=== PATIENT | female | born 1950 | race Caucasian/White ===

== ENCOUNTER 2025-06-22 06:05 | Observation (INO) ==
--- NOTE | 2025-06-08 16:24 | PAT Medication Instructions ---
Medication Instructions Date of Service June 08, 2025 Home Medications Medication Instructions Recorded cranberry extract 650 mg capsule 1,300 mg (2 x 650 mg) PO DAILY #60 07/16/20 caps cranberry extract 650 mg capsule 1,300 mg (2 x 650 mg) PO DAILY calcium no.26 167 mg-magnesium no.15 83 mg-zinc 5 mg capsule (Mcyudyc-Splltvzij-Uefy Complex) 1 cap PO QAM coenzyme Q10 200 mg capsule (Co Q-10) 200 mg PO DAILY loratadine 10 mg tablet 10 mg PO DAILY PRN Allergy Symptoms multivitamin 1 tab PO QAM omega-3 fatty acids 900 mg PO DAILY rosuvastatin 10 mg tablet 5 mg PO QAM STOP taking 2 weeks before surgery (or as soon as possible if surgery is within 2 weeks) coenzyme Q10 200 mg capsule (Co Q-10) 200 mg PO DAILY omega-3 fatty acids 900 mg PO DAILY DO NOT take the morning of surgery calcium no.26 167 mg-magnesium no.15 83 mg-zinc 5 mg capsule (Otbqatx-Qnrrojgge-Qywn Complex) 1 cap PO QAM loratadine 10 mg tablet 10 mg PO DAILY PRN Allergy Symptoms multivitamin 1 tab PO QAM cranberry extract 650 mg capsule 1,300 mg (2 x 650 mg) PO DAILY Take morning of surgery With a small sip of water, OTHERWISE NOTHING TO EAT OR DRINK AFTER MIDNIGHT: rosuvastatin 10 mg tablet 5 mg PO QAM Other Notes If you have any questions please call us at [phone] or [phone] or [phone] or [phone]
--- NOTE | 2025-06-17 10:15 | Anesthesiology Consultation ---
Date of Service June 17, 2025 Assessment & Plan (1) Encounter for pre-operative examination: Chart Review Chart Review: Acceptable Risk for Surgery and Patient seen in Pre Admission Testing Teaching & Discussion Pre-Anesthesia Teaching/Discussion Notes: Instructed NPO after midnight before surgery, except medications with 15 cc of water. Medication instructions provided according to the PAT guidelines. History Surgery Operation Date: 06/22/25 07:30 Proposed Procedures p L1-L2, L3-L4, L4-L5 Decompression - Ken Mena MD Height/Weight Height: 5 ft 5 in Weight: 64.8 kg Allergies Allergy/AdvReac Type Severity Reaction Status Date / Time amoxicillin Allergy Intermediate rash Verified 06/22/25 06:11 erythromycin base Allergy Intermediate rash Verified 06/22/25 06:11 steroid Allergy Mild Rash Uncoded 06/22/25 06:11 Medications Home Medications Medication Instructions Recorded Confirmed Last Taken cranberry extract 650 mg capsule 1,300 mg (2 x 650 mg) PO DAILY #60 07/16/20 06/22/25 06/21/25 09:00 caps calcium no.26 167 mg-magnesium 1 cap PO QAM 06/04/25 06/22/25 06/21/25 09:00 no.15 83 mg-zinc 5 mg capsule (Wxutsff-Keaympmjw-Ikui Complex) coenzyme Q10 200 mg capsule (Co 200 mg PO DAILY 06/04/25 06/22/25 06/08/25 Q-10) loratadine 10 mg tablet 10 mg PO DAILY PRN Allergy Symptoms 06/04/25 06/22/25 Unknown multivitamin 1 tab PO QAM 06/04/25 06/22/25 06/21/25 09:00 omega-3 fatty acids 900 mg PO DAILY 06/04/25 06/22/25 06/08/25 rosuvastatin 10 mg tablet 5 mg PO QPM 06/04/25 06/22/25 06/21/25 22:00 Active Medications Generic Name Dose Route Start Last Admin Trade Name Freq PRN Reason Stop Dose Admin Acetaminophen 1,000 mg 06/22/25 06:00 06/22/25 06:35 Acetaminophen 500 Mg Tab PO 06/22/25 18:00 1,000 mg PREOP SE Administration Lactated Ringer's 1,000 mls @ 15 mls/hr 06/22/25 06:00 06/22/25 06:35 Lr IV 06/23/25 05:59 15 mls/hr .Q24H SE Administration Lactated Ringer's 1,000 mls @ 60 mls/hr 06/22/25 06:00 06/22/25 06:35 Lr IV 06/22/25 22:39 Not Given .[id number] SE Past Medical History Medical History Dyslipidemia Hepatitis entered into EMR 04/01/20 by PCP without additional details-not present in 2019 records-pt denies History of COVID-19 (03/2024) resolved Hx of cyst of breast right breast, noted on mammogram, resolved on own Lumbar spinal stenosis Osteopenia Prediabetes diet controlled Thyroid nodule needle bx, benign Patient denies h/o stroke, seizures, heart attack, heart failure, HTN, blood clots/DVTs or blood transfusions. Exercise / Class Metabolic Activity II 4-5 Yardwork/Stairs/Walk up hill (denies chest discomfort or shortness of breath with one flight of stairs) Past Family History Family History Mother Coronary heart disease Alzheimer disease Hearing loss Heart disease Father Myocardial infarction Heart disease Grandmother (Maternal) Ovarian cancer Son Cancer Testicular cancer Other No family history of allergies No family history of bleeding disorder Denies family history of Prostate cancer Breast cancer Colorectal cancer Stroke Asthma Past Surgical History Surgical History H/O hemorrhoidectomy H/O lumpectomy left breast H/O: hysterectomy Hx of bilateral cataract extraction Hx of colonoscopy S/P epidural steroid injection 05/26/25 lumbar states developed a rash around injection site that lasted x 1 day-resolved with benadryl Past Anesthesia History No Hx of Anesthesia Complications and No Family Hx of Anesthesia Complications History of PONV No Hx of PONV and No Hx of Motion Sickness Social History Smoking Status: Never smoker Do You Dip or Chew Tobacco: No Hx Alcohol Use: Yes Alcohol type: beer, wine and hard liquor alcohol intake frequency: a few times a month Hx Substance Use: No substance use type: does not use (qualified for medical marijuana-plans to start use after surgery/discussion with surgeon) Review of Systems Patient denies chest pain, shortness of breath, dyspnea on exertion, snoring, witnessed apneas, reflux, fever, chills, cough, wheezing, or palpitations. Physical Exam Vital Signs Last Vital Signs Temp 36.8 C 06/22/25 06:19 Pulse 58 L 06/22/25 06:19 Resp 18 06/22/25 06:19 BP 139/81 06/22/25 06:19 Pulse Ox 98 06/22/25 06:19 O2 Del Method Room Air 06/22/25 06:19 Vitals BP 118/76 P 61 TEMP 98.6 SP02 96% on RA RESP 18 Physical Patient resting comfortably in chair in no acute distress, alert and oriented, responding appropriately throughout visit Full cervical extension range of motion without pain TMD 3.5 finger breadths Mallampati Score 2 Dentition: several crowns, denies chipped or loose teeth, caps, implants or bridges Lungs: normal respiratory effort. Good air movement, clear throughout to auscultation, no adventitious breath sounds Cardiac: regular rate and rhythm, no murmurs noted Carotid arteries: negative bruit bilat Lab Results Anesthesia Preop Results Results Anesthesia Widget: WBC 5.31 K/ul (4.8-10.8) 06/17/25 Hgb 12.8 g/dl (12.0-16.0) 06/17/25 Hct 38.4 % (37.0-47.0) 06/17/25 Plt 145 K/uL (130-400) 06/17/25 Na 138 mmol/L (136-145) 06/17/25 K 4.4 mmol/L (3.5-5.1) 06/17/25 Cl 107 mmol/L (98-107) 06/17/25 CO2 26 mmol/L (21-32) 06/17/25 BUN 15 mg/dl (6-23) 06/17/25 Creat 0.88 mg/dl (0.6-1.2) 06/17/25 Glucose Level 103 mg/dl (70-99(Fasting)) H 06/17/25 PT 10.3 Seconds (9.0-12.0) 06/17/25 PTT 25 Seconds (21-31) 06/17/25 INR 1.0 (0.9-1.1) 06/17/25 HA1c 6.0 % (4.5-5.6) H 06/17/25 Blood Type A Negative 06/17/25 Antibody Screen NEGATIVE 06/17/25 Testing Electrocardiogram Date: 06/17/25 Sinus bradycardia with PACs, rate 56 bpm Chest X-Ray Date: 06/17/25 Heart size and pulmonary vasculature are normal. Lungs are hyperexpanded. No consolidation or pleural effusion. IMPRESSION: No acute findings.
[2025-06-22] MEDS ORDERED: ACETAMINOPHEN 1000 MG/100 ML IV IV ONE (06:24)
[2025-06-22] MEDS ORDERED: ALBUMIN HUMAN 5% 12.5 GM/250 ML VIAL IV ONE (06:24)
[2025-06-22] MEDS ORDERED: MIDAZOLAM HCL 1 MG/ML 2ML VIAL ONE (06:30)
[2025-06-22] MEDS ORDERED: ONDANSETRON INJ 2 MG/ML 2 ML VIAL ONE (06:30)
[2025-06-22] MEDS ORDERED: LIDOCAINE 2% 2 ML VIAL/AMP(20MG/ML) INFIL ONE (06:30)
[2025-06-22] MEDS ORDERED: DexMEDEtomidine HCL IV 100 MCG/ML VIAL IV ONE (06:30)
[2025-06-22] MEDS ORDERED: KETAMINE HCL 10MG/ML SYR ONE (06:30)
[2025-06-22] MEDS ORDERED: GLYCOPYRROLATE 0.2 MG/ML VIAL ONE (06:30)
[2025-06-22] MEDS ORDERED: PROPOFOL IV EMULSION 10 MG/ML 20 ML VIAL IV ONE (06:30)
[2025-06-22] MEDS ORDERED: ROCURONIUM BROMIDE 10 MG/ML 5 ML VIAL IV ONE ×2 (06:30→08:30)
[2025-06-22] MEDS ORDERED: DEXAMETHASONE SOD INJ 4 MG/ML VIAL ONE (06:30)
[2025-06-22] MEDS ORDERED: REMIFENTANIL HCL 1 MG VIAL IV ONE (06:31)
[2025-06-22] MEDS ORDERED: HYDROmorphone INJ 2 MG/ML SYR/VIAL ONE (06:31)
[2025-06-22] MEDS: ACETAMINOPHEN 500 MG TAB PO SCH (06:35)
[2025-06-22] MEDS: LR 15ML/HR IV SCH (06:35)
[2025-06-22] MEDS: LR 60ML/HR IV SCH (06:35)
[2025-06-22] MEDS ORDERED: PROPOFOL IV EMULSION 10 MG/ML 100 ML VIAL IV ONE (06:37)
--- NOTE | 2025-06-22 07:16 | History & Physical Bridge Note ---
Date of Service June 22, 2025 History & Physical Bridge Note I have examined the patient, reviewed the History & Physical and in the interval since the performance of the History & Physical I have noted the following changes of clinical significance: no changes noted
[2025-06-22] MEDS ORDERED: ONDANSETRON INJ 2 MG/ML 2 ML VIAL IV PRN ×2 (07:19→12:18)
[2025-06-22] MEDS ORDERED: ATROPINE SULFATE 0.1 MG/ML 10ML SYR IV PRN (07:19)
[2025-06-22] MEDS ORDERED: SUGAMMADEX SODIUM 200 MG/2 ML VIAL IV ONE (08:01)
[2025-06-22] MEDS ORDERED: ePHEDrine sulfate 50 MG/5 ML SYR ONE (08:04)
[2025-06-22] MEDS ORDERED: PHENYLEPHRINE 100MCG/ML 5ML SYR ONE (08:32)
[2025-06-22] MEDS ORDERED: ceFAZolin 330 MG/ML 1 GM VIAL ONE (11:29)
[2025-06-22] MEDS: THROMBIN 5000 UNITS KIT ONE (11:40)
[2025-06-22] MEDS: BUPIVACAINE 0.5 % 5 MG/1 ML MPF 30ML VIAL ONE (11:40)
[2025-06-22] MEDS: GELATIN SPONGE 12-7MM ONE (11:41)
[2025-06-22] MEDS: VANCOMYCIN HCL 1000MG/20ML VIAL ONE (11:41)
[2025-06-22] MEDS: FLOSEAL HEMOSTATIC MATRIX 10ML TOP ONE (11:41)
[2025-06-22] MEDS ORDERED: KETOROLAC 30 MG/ML VIAL ONE (11:48)
--- NOTE | 2025-06-22 12:17 | Post Operative Brief Note ---
PG Immediate Post Op with CF Date of Surgery June 22, 2025 Pre & Post Diagnosis Operation Date: 06/22/25 07:30 Pre-Op Diagnosis: (1) Degenerative spondylolisthesis (2) Lumbar spinal stenosis (3) Low back pain radiating to both legs Post-Op Diagnosis: (1) Degenerative spondylolisthesis (2) Lumbar spinal stenosis (3) Low back pain radiating to both legs I identified the patient and participated in the time-out.: Yes Procedure Operation Date: 06/22/25 07:30 Actual Procedures p L1-L2, L3-L4, L4-L5 Decompression(Not Applicable) - Ken Mena MD Surgeon Ken Mena MD Neuroradiologist none Estimated Blood Loss 30 Findings Consistent with Post-Op Diagnosis Specimens Specimen Description: No specimen per surgeon Drains Rutherford Catheter (Inserted prior to procedure by Sara Burnette without difficulty. Clear yellow urine noted.)
[2025-06-22] MEDS ORDERED: ALUMINUM/MAGNESIUM SUSP 30 ML UDC PO PRN (12:18)
[2025-06-22] MEDS ORDERED: SOD PHOSPHATE/SOD BIPHOSPHATE ENEMA 132 ML BTL PR PRN (12:18)
[2025-06-22] MEDS ORDERED: ACETAMINOPHEN 1,000 MG/100 ML VIAL IV PRN (12:18)
[2025-06-22] MEDS ORDERED: DO NOT ADMINISTER PNEUMOCOCCAL VACCINE PRN (12:18)
[2025-06-22] MEDS ORDERED: HYDROmorphone INJ 1 MG/ML SYRINGE IV PRN (12:18)
[2025-06-22] MEDS ORDERED: LORazepam 0.5 MG TAB PO PRN (12:18)
[2025-06-22] MEDS ORDERED: METOCLOPRAMIDE HCL INJ 5 MG/ML 2 ML VIAL IV PRN (12:18)
[2025-06-22] MEDS ORDERED: HYDROmorphone INJ 0.5 MG/0.5 ML SYR IV PRN (12:18)
[2025-06-22] MEDS ORDERED: NALOXONE HCL 0.4 MG/1 ML VIAL/CARP IV PRN (12:18)
[2025-06-22] MEDS ORDERED: MAGNESIUM HYDROXIDE SUSP 30 ML UDC PO PRN (12:18)
[2025-06-22] MEDS ORDERED: PROMETHAZINE 12.5 MG/50.5 ML BAG IV PRN (12:18)
[2025-06-22] MEDS ORDERED: FAMOTIDINE 20 MG TAB PO PRN (12:18)
[2025-06-22] MEDS ORDERED: DO NOT ADMINISTER FLU VACCINE PRN (12:18)
[2025-06-22] MEDS ORDERED: ONDANSETRON 4 MG OD TAB PO PRN (12:18)
[2025-06-22] MEDS ORDERED: diphenhydrAMINE Capsule 25 MG CAP PO PRN (12:18)
[2025-06-22] MEDS ORDERED: LORazepam Inj 0.5 MG in SYRINGE 0.25 ML IV PRN (12:18)
--- NOTE | 2025-06-22 12:24 | Fluoroscopy Report ---
FL lumbar spine 2-3V CLINICAL HISTORY: L1-L2, L3-L4, L4-L5 DECOMPRESSION COMPARISON STUDY: None FLUOROSCOPY TIME: 33 seconds FLUOROSCOPY IMAGES: 4 EXPOSURE DOSE: 16 mGy FINDINGS: Fluoroscopy was provided for lumbar surgery. IMPRESSION: Intraoperative fluoroscopy. ACT 112: Negative or not required by law. Electronically signed by: Mayur Cole M.D. 06/22/2025 12:22 PM
--- NOTE | 2025-06-22 12:36 | Anesthesiology Progress Note ---
Date of Service June 22, 2025 Anesthesia Post Procedure Vital Signs Vital Signs: Temp Pulse Resp BP Pulse Ox O2 Del Method O2 Flow Rate 06/22/25 12:20 94 H 12 120/74 97 Oxymask 4 06/22/25 12:10 36.1 C L 90 13 112/61 97 Oxymask 6 06/22/25 06:19 36.8 C 58 L 18 139/81 98 Room Air Transfer of Care Handoff Completed per policy Notes Mental Status: alert / awake / arousable Patient Amnestic to Procedure: Yes Nausea / Vomiting: adequately controlled Pain: adequately controlled Airway Patency, RR, SpO2: stable & adequate BP & HR: stable & adequate Hydration State: stable & adequate Anesthetic Complications: no major complications apparent
[2025-06-22] MEDS: ACETAMINOPHEN 500 MG TAB PO PRN (13:39)
--- NOTE | 2025-06-22 14:29 | Consultation ---
Date of Consultation June 22, 2025 Assessment & Plan (1) Low back pain radiating to both legs: (2) Stenosis, spinal, lumbar: (3) Hyperglycemia: (4) Osteoporosis: (5) HLD (hyperlipidemia): Plan Ms. Blanton is a very pleasant 74F with PMH Cervical/lumbar spinal stenosis, chron ic pain, osteoporosis, HLD, pre DM, Elevated PTH, elevated LFTs who presents with intractable low back pain. She failed conservative management and presents today for L1-L5 decompression. #Lumbar spinal stenosis -S/p decompression 06/22 Plan -Management per surgery -Pain control -PT/OT -Bowel regimen -DVT proph per surgery -Encourage incentive spirometry #HLD -Continue statin #Osteoporosis -Noted #Pre DM -Noted. f/u with PCP I spent a total of 38 minutes coordinating, documenting, and providing care for this patient excluding time spent in the performance of separately billed services. This included personally reviewing all current laboratories and imaging studies, medical reconciliation, outpatient chart review and discussion with specialists History of Present Illness Reason for Consultation: Medical management Attending Physician: Ken Mena MD History of Present Illness Ms. Blanton is a very pleasant 74F with PMH Cervical/lumbar spinal stenosis, chronic pain, osteoporosis, HLD, pre DM, Elevated PTH, elevated LFTs who presents with intractable low back pain. She failed conservative management and presents today for L1-L5 decompression. She is seen in her room post op. Her family is present at bedside. She feels well other than low back pain. She denies any other complaints. Allergies Allergy/AdvReac Type Severity Reaction Status Date / Time amoxicillin Allergy Intermediate rash Verified 06/22/25 06:11 erythromycin base Allergy Intermediate rash Verified 06/22/25 06:11 steroid Allergy Mild Rash Uncoded 06/22/25 06:11 Home Medications Medication Instructions Recorded Confirmed Type cranberry extract 650 mg capsule 1,300 mg (2 x 650 mg) PO DAILY #60 07/16/20 06/22/25 Rx caps calcium no.26 167 mg-magnesium 1 cap PO QAM 06/04/25 06/22/25 History no.15 83 mg-zinc 5 mg capsule (Khltjsn-Njnvwqjlp-Iebg Complex) coenzyme Q10 200 mg capsule (Co 200 mg PO DAILY 06/04/25 06/22/25 History Q-10) loratadine 10 mg tablet 10 mg PO DAILY PRN Allergy Symptoms 06/04/25 06/22/25 History multivitamin 1 tab PO QAM 06/04/25 06/22/25 History omega-3 fatty acids 900 mg PO DAILY 06/04/25 06/22/25 History rosuvastatin 10 mg tablet 5 mg PO QPM 06/04/25 06/22/25 History Patient History Medical History Lumbar spinal stenosis History of COVID-19 (03/2024) resolved Hx of cyst of breast right breast, noted on mammogram, resolved on own Osteopenia Prediabetes diet controlled Dyslipidemia Hepatitis entered into EMR 04/01/20 by PCP without additional details-not present in 2019 records-pt denies Thyroid nodule needle bx, benign Surgical History S/P epidural steroid injection 05/26/25 lumbar states developed a rash around injection site that lasted x 1 day-resolved with benadryl Hx of colonoscopy Hx of bilateral cataract extraction H/O hemorrhoidectomy H/O: hysterectomy H/O lumpectomy left breast Family History Mother Coronary heart disease Alzheimer disease Hearing loss Heart disease Father Myocardial infarction Heart disease Grandmother (Maternal) Ovarian cancer Son Cancer Testicular cancer Other No family history of allergies No family history of bleeding disorder Denies family history of Prostate cancer Breast cancer Colorectal cancer Stroke Asthma Social History Smoking Status: Never smoker Second Hand Exposure: No; Do You Dip or Chew Tobacco: No; Tobacco Cessation Education Requested by Patient: No Hx Alcohol Use: Yes Alcohol type: beer, wine and hard liquor Alcohol Intake Frequency Comment: 1 per day Hx Substance Use: No Preferred Language: [place] Communication Ability: Effective Visual Impairment: Partially Limited Hearing Ability: Normal Joggle Press Operator Required: No Beliefs That Will Affect Care: None marital status: Current Living Situation: Spouse current occupational status: retired 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 How many Children do You have: 2 How many Children do You have Comment: 1 boy 1 girl Other Information That Helps Us Care for You: No Feels Safe at Home: Yes Safety Concerns: Feels Safe At This Time Childhood Exposure to Second-Hand Smoke: No Diet: regular during the past year weight has: remained stable Dental Care, Regularly: Yes Physical Activity Frequency: Daily Seatbelt Use: always Sunscreen Use: Yes Assistive Devices: None Review of Systems Review of Systems: 13 point ROS negative unless stated in H PI Physical Exam Physical Exam: Vitals and labs reviewed General: Well appearing, NAD HEENT: EOMI, PERRLA Neck: Supple Cardiac: RRR no rubs gallops or murmurs Lungs: CTA no rhonchi wheezing or rales Abd: S NT ND BS positive : No aguilar MSK: No obvious deformities No drain Ext: No Edema cyanosis Skin: Warm, Dry Neuro: AOx3 No focal deficits. Psych: Normal Mood Results & Data Vital Signs (Past 12 Hours) Vital Signs Temp Pulse Pulse Resp BP Pulse Ox O2 Del Method 06/22/25 14:00 36 C L 92 H 16 103/66 95 Room Air 06/22/25 13:31 36 C L 90 16 113/75 96 Room Air 06/22/25 13:00 36.4 C L 94 H 14 115/75 95 Room Air 06/22/25 12:50 36.4 C L 90 16 114/74 93 Room Air 06/22/25 12:40 92 H 14 115/70 93 Room Air 06/22/25 12:30 93 H 12 113/70 97 Oxymask 06/22/25 12:20 94 H 12 120/74 97 Oxymask 06/22/25 12:10 36.1 C L 90 13 112/61 97 Oxymask 06/22/25 06:19 36.8 C 58 L 18 139/81 98 Room Air O2 Flow Rate 06/22/25 14:00 06/22/25 13:31 06/22/25 13:00 06/22/25 12:50 06/22/25 12:40 06/22/25 12:30 2 06/22/25 12:20 4 06/22/25 12:10 6 06/22/25 06:19
[2025-06-22] MEDS: DOCUSATE SODIUM/SENNA 50/8.6MG TAB PO SCH (21:02)
[2025-06-22] MEDS: ROSUVASTATIN CALCIUM 5 MG TAB PO SCH (21:02)
[2025-06-23 03:30] VITALS: RESP 16; O2SAT 98
[2025-06-23] MEDS: POLYETHYLENE (MIRALAX) 17 GM PACK PO SCH (05:49)
[2025-06-23 07:21] VITALS: PULSE 66; TEMP 98.1
--- NOTE | 2025-06-23 07:55 | Orthopedic Progress Note ---
Date of Service June 23, 2025 Assessment & Plan (1) Status post lumbar spine operative procedure for decompression of spinal cord: * Continue Current Treatment * Disposition: home * Daily treatment: Physical Therapy/ Occupational Therapy per protocol * Weight bearing status: WBAT, no restrictions * Appreciate hospital medicine eval and recs regarding hypotension * Continue to monitor for ABLA * Pain control * Office/hospital f/u 2 weeks for progress check and staple/suture removal * Potential discharge today pending PT/OT clearance, will discuss after lunch Subjective Active Problems: S/p L1-2, L3-5 decompression POD 1 74 y/o female s/p L1-2, L3-5 decompression. Doing well overall, pain managed and improved function. Denies leg pain. Hypotension overnight, asymptomatic. Denies fever/chills, chest pain/SOB, nausea/vomiting. Otherwise no complaints. Patient seen and examined, notes an improvement in lower extremity symptoms versus preoperative symptoms, minimal low back pain. When cleared by hospitalist and physical therapy may discharge home. Review of Systems All systems reviewed & are unremarkable except as noted in HPI & below. Physical Exam * General: Alert and oriented, no acute distress * Constitutional: well-developed, well-nourished. * Respiratory: Normal respiratory effort, no distress * Gastrointestinal: No tenderness to palpation, no rigidity or guarding. * Skin: No rash or lesion. * Neurologic: Grossly normal * Musculoskeletal: Surgical dressing CDI. Lumbar spine region without obvious deformity or overlying skin changes. Minimal tenderness of surgical region, otherwise no tenderness b/l buttock or LE. Lumbar flexion/extension and rotation ROM with minimal pain. AROM b/l hip flexion, knee flexion/extension, ankle flexion/extension intact. Sensation intact plantar/dorsal foot. Brisk capillary refill. Results & Data Results & Data Laboratory Results . Diagnostic Findings . Lumbar Spine X-Ray 06/22/25 07:30 FL lumbar spine 2-3V CLINICAL HISTORY: L1-L2, L3-L4, L4-L5 DECOMPRESSION COMPARISON STUDY: None FLUOROSCOPY TIME: 33 seconds FLUOROSCOPY IMAGES: 4 EXPOSURE DOSE: 16 mGy FINDINGS: Fluoroscopy was provided for lumbar surgery. IMPRESSION: Intraoperative fluoroscopy. ACT 112: Negative or not required by law. Electronically signed by: Mayur Cole M.D. 06/22/2025 12:22 PM PG Care Time/CCT Total # of Minutes Spent Total Time Spent with Patient: Total time spent is greater than 50% in coordination of care (as documented) at patient's floor/unit and/or counseling patient: Coding Level of Care Code 43340 Post Operative Follow-Up Diagnoses Status post lumbar spine operative procedure for decompression of spinal cord Z98.890
[2025-06-23] MEDS: SODIUM CHLORIDE 0.9% 500 ML IV ONE (08:37)
[2025-06-23 08:44] VITALS: BP 111/67
--- NOTE | 2025-06-23 10:11 | Hospitalist Progress Note ---
Date of Service June 23, 2025 Assessment & Plan (1) Low back pain radiating to both legs: (2) Stenosis, spinal, lumbar: (3) Hyperglycemia: (4) Osteoporosis: (5) HLD (hyperlipidemia): Plan Ms. Blanton is a very pleasant 74F with PMH Cervical/lumbar spinal stenosis, chronic pain, osteoporosis, HLD, pre DM, Elevated PTH, elevated LFTs who presents with intractable low back pain. She failed conservative management and presents today for L1-L5 decompression. #Lumbar spinal stenosis -S/p decompression 06/22 Plan -Management per surgery -Pain control -PT/OT -Bowel regimen -DVT proph per surgery -Encourage incentive spirometry -No medical contraindication for discharge #Hypotension -BP soft after OR yesterday. Likely due to fluid shifts+anesthesia -She does not have HTN and is usually low normal -She has no fever or s/s acute infection -There is no evidence of acute blood loss -BP responded to small IVF bolus today -BP currently 111/67 -Ok for discharge #HLD -Continue statin #Osteoporosis -Noted #Pre DM -Noted. f/u with PCP I spent a total of 42 minutes coordinating, documenting, and providing care for this patient excluding time spent in the performance of separately billed services. This included personally reviewing all current laboratories and imagi ng studies, medical reconciliation, outpatient chart review and discussion with specialists Admission and Anticipated Discharge Date Admission Date: June 22, 2025 Subjective Feeling well today and has no complaints other than back pain. Patient denies F/C, CP, palpitations, SOB, dyspnea, abd pain, N/V/D Physical Exam Physical Exam: Vitals and labs reviewed General: Well appearing, NAD HEENT: EOMI, PERRLA Neck: Supple Cardiac: RRR no rubs gallops or murmurs Lungs: CTA no rhonchi wheezing or rales Abd: S NT ND BS positive : No aguilar MSK: No obvious deformities No drain Ext: No Edema cyanosis Skin: Warm, Dry Neuro: AOx3 No focal deficits. Psych: Normal Mood Results & Data Results & Data Vital Signs (Past 12 Hours) Vital Signs Temp Pulse Resp BP BP Pulse Ox O2 Del Method 06/23/25 08:43 111/67 06/23/25 07:20 36.7 C 66 16 98/61 L 98 Room Air 06/23/25 03:29 36.4 C 55 L 16 95/57 L 98 Room Air 06/22/25 23:10 36.5 C 63 14 95/55 L 96 Room Air
--- NOTE | 2025-06-23 10:52 | Operative Report ---
PG Post Operative Report Pre & Post Diagnosis Operation Date: 06/22/25 07:30 Pre-Op Diagnosis: (1) Degenerative spondylolisthesis (2) Lumbar spinal stenosis (3) Low back pain radiating to both legs Post-Op Diagnosis: (1) Degenerative spondylolisthesis (2) Lumbar spinal stenosis (3) Low back pain radiating to both legs I identified the patient and participated in the time-out.: Yes Procedure Operation Date: 06/22/25 07:30 Actual Procedures p L1-L2, L3-L4, L4-L5 Decompression(Not Applicable) - Ken Mena MD Surgeon Ken Mena MD Intellectual Property Paralegal none Estimated Blood Loss 30 Findings Consistent with Post-Op Diagnosis Specimens none Description of Procedure 1. L12 posterior lumbar decompression/laminectomy. (52858) 2. L3-4 posterior lumbar decompression laminectomy. (87324) 3. L4-5 posterior lumbar decompression laminectomy. (82682) Patient was taken operating room after adequate anesthesia was carefully positioned prone on the Thien frame and checked for positioning. Preprepped was performed, I brought in fluoroscopy to migdalia for the approximate location of the levels for the decompression followed by prep and drape. Midline incision was then made, 2 separate incisions 1 over the L3-4 and L4-5 levels, a separate incision over L1-2.) is the fascia was incised on either side of the spinous process and then mobilized exposing the interlaminar region between L1-2, L3-4 and L4-5. Retractors were set, and starting with the L1-2 level, the spinous process inferior aspect was removed, and the interlaminar region was exposed by first thinning the ligamentum flavum. High-speed bur was then utilized to perform bilateral hemilaminectomies along the inferior lamina edge of L1 across the superior lamina edge of L2 and along the medial facets on both sides. Additional thinning and then removal of the thickened ligamentum flavum was then performed along with undercutting the facets bilaterally, and completing the inferior hemilaminectomy on both sides along the inferior aspect of L1 across the superior laminar aspect of L2 decompressing the nerve roots bilaterally. Upon completion, evaluation revealed significant decompression at this level, no issues were noted, Floseal was applied along with vancomycin powder. I then moved to the L3-4 and L4-5 levels where similar processes were performed, this included the removal of the inferior aspect of the spinous process, and then across the 3 4 inner lamina region bilateral hemilaminectomies across the in ferior laminar edge of L3, across the superior laminar aspect L4 along the medial facets. Additional effort was then performed to within and then remove the thickened ligamentum flavum, completing the hemilaminotomies and laminectomies, undercutting the facets and decompressing the nerve roots at this level. An identical process was then performed as with the 2 previous processes at L4-5, care was taken to avoid removing excessive amounts of the facets to destabilize the segments, and once again a decompression was completed at this level adequately decompressing the segments. Nerve roots were decompressed, the final inspection revealed no issues with either decompression site, Floseal was applied along with vancomycin powder. This was after additional irrigation was performed in both instances, blood loss was minimal in both instances, and then the operative sites were closed using interrupted 0 Vicryl sutures followed by 2-0 Vicryl sutures and sonali for the skin. Sterile dressings were applied, the patient tolerated procedure well was taken recovery room in satisfactory condition. I attest to the content of the Intraoperative Record and any orders documented therein. Any exceptions are noted below.
== END 2025-06-23 13:16 | disposition home or self-care (01) ==
LOC: ASU 06:05 → 3N 06:05